=== PATIENT | male | born 1990 ===

== ENCOUNTER 2016-10-15 11:46 | Emergency (ER) | payer SELFPAY ==
[2016-10-15 11:52] VITALS: BMI 30.7
--- NOTE | 2016-10-15 12:05 | ED PDOC ---
Arrival/HPI - General Chief Complaint: Shortness Of Breath Time Seen by Provider: 10/15/16 11:55 Historian: Patient - History of Present Illness Narrative History of Present Illness (Text): 10/15/16 11:55 Jovany Davis is a 26 year old male complaining of difficulty breathing prior to arrival. Patient states that he was loading a truck with raw sandip when he felt like he inhaled too much sandip and developed shortness of breath. Patient denies any chest pain or any other complaint at this time. Time/Duration: Prior to Arrival Symptom Course: Unchanged Activities at Onset: Light Context: Work Past Medical History - Provider Review Nursing Documentation Reviewed: Yes - Psychiatric Hx Substance Use: No Family/Social History - Physician Review Nursing Documentation Reviewed: Yes Family/Social History: No Known Family HX Smoking Status: Light Smoker < 10 Cigarettes Daily Hx Alcohol Use: Yes Frequency of alcohol use: Socially Hx Substance Use: No Allergies/Home Meds Allergies/Adverse Reactions: Allergies iodine Allergy (Verified 10/15/16 11:52) ANGIOEDEMA Physical Exam - Physical Exam Narrative Physical Exam (Text): - Review of Systems Constitutional: Normal. absent: Fatigue, Weight Change, Fevers Eyes: Normal ENT: Normal Respiratory: Difficulty Breathing absent: Cough, Sputum Cardiovascular: Normal absent: Chest pain, Palpitations, Syncope Gastrointestinal: Normal absent: Abdominal pain, Diarrhea, Nausea, Vomiting Genitourinary: Normal. absent: Dysuria, Frequency, Hematuria Musculoskeletal: Normal. absent: Arthralgias, Back Pain, Neck Pain Skin: Normal Neurological: Normal absent: Focal Weakness Endocrine: Normal Hemo/Lymphatic: Normal Psychiatric: Normal - Physical exam Patient appears age appropriate, speaking full sentences without difficulty. - Systems Exam Head: Present: Atraumatic, Normocephalic Pupils: Present: PERRL Extraocular Muscles: Present: EOMI Conjunctiva: Present: Normal Mouth: Present: Moist Mucous Membranes Neck: Present: Normal Range of Motion. No: MIDLINE TENDERNESS, Paraspinal Tenderness Respiratory/Chest: Mild expiratory wheezing. No: Respiratory Distress, Accessory Muscle Use, Tachypnic Cardiovascular: Present: Regular Rate and Rhythm, Normal S1, S2, Peripheral Pulses Present. No: Murmurs Abdomen: Present: Normal Bowel Sounds, No: Tenderness, Peritoneal Signs, Rebound, Guarding, Distention Back: Present: Normal Inspection. No: Midline Tenderness, Paraspinal Tenderness Upper Extremity: Present: Normal Inspection. No: Cyanosis, Edema Lower Extremity: Present: Normal Inspection. No: Edema Neurological: Present: GCS=15, Speech Normal, cranial nerves II through XII fully intact with no cerebellar abnormality, neuro-sensory fully intact. No focal neurological deficits. Skin: Present: Warm, Dry, Normal Color. No: Rashes Lymphatic: Present: OX3, NI, NC Psychiatric: Present: Alert, Oriented x 3, Normal Insight, Normal Concentration Vital Signs Pulse Resp BP Pulse Ox 10/15/16 14:24 87 18 120/75 98 10/15/16 13:50 80 18 125/59 L 98 10/15/16 12:00 20 95 Medical Decision Making ED Course and Treatment: 10/15/16 11:55 Impression: 26 year old male complaining of shortness of breath after reportedly inhaling too much raw sandip prior to arrival. Mild wheezing on examination, in no resp distress, speaking full sentences without difficulty Differential Diagnosis included but are not limited to: allergic reaction, wheezing PERC negative Plan: -- Chest X-ray -- Solu-medrol and Duoneb -- Reassess and disposition Progress Notes: EKG shows NSR at [address]-segment elevations, normal intervals. Interpreted by me. 10/15/16 14:03 CXR shows no acute disease as read by the radiologist on reeval, pt appears well and denies complaints lung sounds clear to ausc. b/l with good insp/exp effort pt states he feels comfortable being dc'd home with outpatient f/u Pt states he understands to return to the ER right away for new or worsening symptoms or for inability to f/u with PMD or specialist as instructed. Patient states that he fully agrees with and understands discharge instructions. States that he agrees with the plan and disposition. Verbalized and repeated discharge instructions and plan. I have given the patient opportunity to ask any additional questions. - RAD Interpretation Radiology Orders: 10/15/16 11:58 CHEST PORTABLE [RAD] Stat - Medication Orders Current Medication Orders: Discontinued Medications Albuterol/Ipratropium (Duoneb 3 Mg/0.5 Mg (3 Ml) Ud) 3 ml IH Q15M ROMEL Stop: 10/15/16 12:46 Last Admin: 10/15/16 14:10 Dose: 3 ml Methylprednisolone (Solu-Medrol) 125 mg IVP STAT STA Stop: 10/15/16 12:03 Last Admin: 10/15/16 12:37 Dose: 125 mg - Scribe Statement The provider has reviewed the documentation as recorded by the Amina Hall Provider Scribe Attestation: All medical record entries made by the Scribe were at my direction and personally dictated by me. I have reviewed the chart and agree that the record accurately reflects my personal performance of the history, physical exam, medical decision making, and the department course for this patient. I have also personally directed, reviewed, and agree with the discharge instructions and disposition. Disposition/Present on Arrival - Present on Arrival Any Indicators Present on Arrival: No History of DVT/PE: No History of Uncontrolled Diabetes: No Urinary Catheter: No History of Decub. Ulcer: No History Surgical Site Infection Following: None - Disposition Have Diagnosis and Disposition been Completed?: Yes Diagnosis: Shortness of breath Disposition: HOME/ ROUTINE Disposition Time: 14:07 Patient Plan: Discharge Condition: GOOD Discharge Instructions (ExitCare): Wheezing (ED) Additional Instructions: PLEASE RETURN TO THE EMERGENCY DEPARTMENT FOR NEW OR WORSENING SYMPTOMS. RETURN RIGHT AWAY IF YOU CANNOT FOLLOW UP WITH YOUR PRIMARY CARE DOCTOR, CLINIC, OR SPECIALIST IN 1-2 DAYS. Prescriptions: Albuterol HFA [Ventolin HFA 90 mcg/actuation (8 g)] 2 puff IH Q4 #1 puff Methylprednisolone [Medrol Dose Pack (21 tabs)] 4 mg PO DAILY #21 mg Referrals: La Nena Cortes, [Primary Care Provider] - Follow up with primary Matehus Duarte MD [Staff Provider] - Follow up with primary [facility] at [facility] [place]] - Follow up with primary Forms: WORK NOTE
[2016-10-15] MEDS: Albuterol-Ipratrop 3 mg / 0.5 (3 ml) UD IH SCH ×3 (12:38→14:10)
--- NOTE | 2016-10-15 12:55 | RAD ---
HISTORY: cough COMPARISON: No prior. FINDINGS: LUNGS: No active pulmonary disease. PLEURA: No significant pleural effusion identified, no pneumothorax apparent. CARDIOVASCULAR: Normal. OSSEOUS STRUCTURES: No significant abnormalities. VISUALIZED UPPER ABDOMEN: Normal. OTHER FINDINGS: None. IMPRESSION: No active disease.
[2016-10-15 13:50] VITALS: RESP 18; O2SAT 98
[2016-10-15 14:25] VITALS: BP 120/75; PULSE 87
--- NOTE | 2016-10-15 21:04 | CARD ---
APPROVED REPORT EKG Measurement Heart [id number] <Conclusion> Normal sinus rhythm Normal ECG
== END 2016-10-15 14:28 | disposition home or self-care (01) ==
LOC: ED 11:46
DX: R06.02 Shortness of breath (principal)
CPT/HCPCS: 71010; 93005; 96374; 99284; J2930